=== PATIENT | male | born 1940 | race Caucasian/White ===

== ENCOUNTER → 2021-06-24 09:04 | Outpatient (BNVA) | payer MEDICARE, SELFPAY | PROVIDERS: Family Provider Nurse Practitioner Family; PCP Nurse Practitioner Family; Visit Provider Family Medicine | DX: E11.649 Type 2 diabetes mellitus with hypoglycemia without coma (principal); I63.9 Cerebral infarction, unspecified | CPT/HCPCS: 80053; 80061; 84681; 85025 ==

== ENCOUNTER → 2021-08-04 09:42 | Outpatient (BNVA) | payer MEDICARE, SELFPAY | PROVIDERS: Family Provider Nurse Practitioner Family; PCP Nurse Practitioner Family; Visit Provider Family Medicine | DX: R11.10 Vomiting, unspecified (principal); E11.649 Type 2 diabetes mellitus with hypoglycemia without coma | CPT/HCPCS: 80053; 83036; 85025 ==